=== PATIENT | male | born 1955 | race African-American/Black ===

== ENCOUNTER 2020-07-01 22:10 | Inpatient (IN) | payer OTHER ==
[2020-07-01 22:43] VITALS: BMI 24.5
--- NOTE | 2020-07-02 02:02 | HP ---
COWS - Scale Resting Pulse: 0= [place] 80 or Below Sweatin=Flushed/Facial Moisture Restless Observation: 0= Sits Still Pupil Size: 0= Normal to Room Light Bone or Joint Aches: 2= Severe Diffuse Aches Runny Nose/ Eye Tearin= Nasal Congestion GI Upset > 30mins: 1= Stomach Cramp Tremor Observation: 2= Slight Tremor Visible Yawning Observation: 1= 1-2x During Session Anxiety or Irritability: 4=Extreme Anxiety Goose Flesh Skin: 0=Smooth Skin COWS Score: 13 CIWA Score - Admission Criteria OASAS Guidelines: Admission for Medically Managed Detox: Requires at least one of the followin. CIWA greater than 12 2. Seizures within the past 24 hours 3. Delirium tremens within the past 24 hours 4. Hallucinations within the past 24 hours 5. Acute intervention needed for co occurring medical disorder 6. Acute intervention needed for co occurring psychiatric disorder 7. Severe withdrawal that cannot be handled at a lower level of care (continued vomiting, continued diarrhea, abnormal vital signs) requiring intravenous medication and/or fluids 8. Admission ROS [facility] Chief Complaint: Seeking admission to detox from heroin Allergies/Adverse Reactions: Allergies Allergy/AdvReac Type Severity Reaction Status Date / Time Penicillins Allergy Verified 07/02/20 02:01 penicillin Allergy Unknown Uncoded 07/02/20 02:00 History of Present Illness: 64 years old male with a long history of heroin dependence is seeking admission to detox. This is his first admission to [facility] and he reports that his last admission was at [facility] He uses 4 bags of heroin daily. He has medical history of asthma, Hep. C, GERD, hypertension, syphilis (treated 30 years ago) and psych. history of depression, bipolar disorder, schizophrenia and anxiety. He reports suicide attempt 20 years ago and denies suicidal ideation at this time. He is on disability, lives alone and denies pending legal issues. He reports history of blackouts and overdose (last overdose was Nov 2019) Exam Limitations: No Limitations - Ebola screening Have you traveled outside of the country in the last 21 days: No Have you had contact with anyone from an Ebola affected area: No Have you been sick,other than usual withdrawal symptoms: No Do you have a fever: No - Review of Systems Constitutional: Chills, Loss of Appetite, Malaise, Changes in sleep EENT: reports: No Symptoms Reported Respiratory: reports: No Symptoms reported Cardiac: reports: No Symptoms Reported GI: reports: Nausea, Poor Appetite, Poor Fluid Intake, Abdominal cramping : reports: No Symptoms Reported Musculoskeletal: reports: Back Pain, Joint Pain Integumentary: reports: Dryness, Flushing Neuro: reports: Headache, Tremors Endocrine: reports: No Symptoms Reported Hematology: reports: No Symptoms Reported Psychiatric: reports: Mood/Affect Appropiate, Orientated x3, Anxious, Depressed Other Systems: Reviewed and Negative Patient History - Patient Medical History Hx Anemia: No Hx Asthma: Yes (Albuterol) Hx Chronic Obstructive Pulmonary Disease (COPD): No Hx Cancer: No Hx Cardiac Disorders: No Hx Congestive Heart Failure: No Hx Hypertension: Yes (HCTZ) Hx Hypercholesterolemia: No HX Cerebrovascular Accident: No Hx Seizures: No Hx Diabetes: No Hx Gastrointestinal Disorders: Yes (GERD) Hx Liver Disease: Yes (Hep. C) Hx Genitourinary Disorders: No Hx Sexually Transmitted Disorders: Yes (Syphilis) Hx Renal Disease (ESRD): No Hx Thyroid Disease: No Hx Human Immunodeficiency Virus (HIV): No (Negative 2018) Hx Hepatitis C: Yes (Not treated) Hx Depression: Yes Hx Suicide Attempt: Yes (Attempt in 1999, denies suicidal ideation at this time) Hx Bipolar Disorder: Yes Hx Schizophrenia: Yes - Patient Surgical History Past Surgical History: No - PPD History Previous Implant?: Yes Documented Results: Negative w/o proof Implanted On Prior R Admission?: No PPD to be Administered?: Yes - Reproductive History Patient is a Female of Child Bearing Age (11 -55 yrs old): No (Male) - Smoking Cessation Smoking history: Current every day smoker Have you smoked in the past 12 months: Yes Aproximately how many cigarettes per day: 40 Hx Chewing Tobacco Use: No Initiated information on smoking cessation: Yes 'Breaking Loose' booklet given: 07/02/20 - Substance & Tx. History Hx Alcohol Use: No Hx Substance Use: Yes Substance Use Type: Cocaine, Heroin, Opiates Hx Substance Use Treatment: Yes ([facility] - Substances abused Heroin Substance route: Injection Frequency: Daily Amount used: 4 bags Age of first use: 16 Date of last use: 07/02/20 Admission Physical Exam BHS - Vital Signs Vital Signs: Vital Signs - 24 hr 07/01/20 22:41 Temperature 97.6 F Pulse Rate 68 Respiratory 19 Rate Blood Pressure 120/77 - Physical General Appearance: Yes: Moderate Distress, Tremorous, Sweating, Anxious HEENTM: Yes: Within Normal Limits Respiratory: Yes: Lungs Clear, Normal Breath Sounds, No Respiratory Distress Neck: Yes: Within Normal Limits Breast: Yes: Breast Exam Deferred Cardiology: Yes: Within Normal Limits Abdominal: Yes: Within Normal Limits Genitourinary: Yes: Within Normal Limits Back: Yes: Within Normal Limits Musculoskeletal: Yes: Back pain, Muscle Pain Extremities: Yes: Tremors Neurological: Yes: Within Normal Limits Integumentary: Yes: Warm Lymphatic: Yes: Within Normal Limits - Diagnostic (1) Opioid dependence, uncomplicated Current Visit: Yes Status: Acute (2) Asthma Current Visit: Yes Status: Chronic Qualifiers: Asthma severity: mild Asthma persistence: intermittent (3) Hep C w/o coma, chronic Current Visit: Yes Status: Chronic (4) GERD (gastroesophageal reflux disease) Current Visit: Yes Status: Chronic (5) Hypertension Current Visit: Yes Status: Chronic Qualifiers: Hypertension type: essential hypertension Qualified Code(s): I10 - Essential (primary) hypertension (6) Syphilis Current Visit: Yes Status: Chronic (7) Depression Current Visit: Yes Status: Chronic Qualifiers: Depression Type: unspecified Qualified Code(s): F32.9 - Major depressive disorder, single episode, unspecified (8) Bipolar disorder Current Visit: Yes Status: Chronic (9) Schizophrenia Current Visit: Yes Status: Chronic (10) Anxiety Current Visit: Yes Status: Chronic Cleared for Admission [facility] - Detox or Rehab [facility] Level of Care: Medically Managed Detox Regimen/Protocol: Methadone Claeared for Rehab Admission: Yes Breathalyzer - Breathalyzer Breathalyzer: 0 Urine Drug Screen - Test Device Lot number: [id number] Expiration date: 05/25/22 - Control Is test valid?: Yes - Results Drug screen NEGATIVE: No Urine drug screen results: CALE-Cocaine, MOP-Opiates, MTD-Methadone, BZO- Benzodiazepines Inpatient Rehab Admission - Rehab Decision to Admit Inpatient rehab admission?: No
[2020-07-02] MEDS ORDERED: NICOTINE POLACRILEX 2 MG GUM BUC PRN (02:23)
[2020-07-02] MEDS ORDERED: MENTHOL/PHENOL 1 EACH UD MM PRN (02:23)
[2020-07-02] MEDS ORDERED: cloNIDine HCL 0.1 MG TABLET PO PRN (02:23)
[2020-07-02] MEDS ORDERED: ACETAMINOPHEN 325 MG TABLET (FP) PO PRN (02:23)
[2020-07-02] MEDS ORDERED: MAG HYDROX/AL HYDROX/SIMETH 30 ML UNIT-DOSE CUP PO PRN (02:23)
[2020-07-02] MEDS ORDERED: ONDANSETRON *ODT* 4 MG TABLET SL PRN (02:23)
[2020-07-02] MEDS ORDERED: IBUPROFEN 400 MG TABLET (FP) PO PRN (02:23)
[2020-07-02] MEDS ORDERED: MAGNESIUM CITRATE 300 ML BOTTLE PO PRN (02:23)
[2020-07-02] MEDS ORDERED: MAGNESIUM HYDROX 2400MG/30ML ORAL SUSPENSION 30 ML CUP PO PRN (02:23)
[2020-07-02] MEDS ORDERED: METHADONE HCL 10 MG TABLET (FOR DETOX USE ONLY) PO ONE (02:40)
[2020-07-02] MEDS: ACETAMINOPHEN 325 MG TABLET (FP) PO PRN (05:24)
[2020-07-02] MEDS: METHOCARBAMOL 500 MG TABLET PO PRN ×2 (05:24→22:17)
--- NOTE | 2020-07-02 09:01 | EKG ---
Test Reason : Blood Pressure : / mmHG Vent. Rate : 066 BPM Atrial Rate : 066 BPM P-R Int : 148 ms QRS Dur : 078 ms QT Int : 414 ms P-R-T Axes : 070 -20 035 degrees QTc Int : 434 ms NORMAL SINUS RHYTHM MINIMAL VOLTAGE CRITERIA FOR LVH, MAY BE NORMAL VARIANT LEFTWARD AXIS NO PREVIOUS ECGS AVAILABLE Confirmed by PETAR AVILA MD ([id number]) on 07/02/2020 9:00:24 AM Referred By: Tarun Reed Confirmed By:PETAR AVILA MD
[2020-07-02 10:39] LABS: HEMATOCRIT 39.5 % (35.4-49); MCH 30.3 pg (25.7-33.7); MCHC 32.8 g/dl (32.0-35.9); MEAN CELL VOLUME 92.2 fl (80-96); MEAN PLT VOLUME 7.4 fl (7.5-11.1); PLATELET COUNT 269 K/MM3 (134-434); RBC 4.28 M/mm3 (4.00-5.60); RDW 12.8 % (11.9-15.9)
[2020-07-02] MEDS: PRENATAL VITAMINS W/ FOLIC ACID TABLET (FP) PO SCH (10:47)
[2020-07-02] MEDS: NICOTINE 14 MG/24 HOURS TOPICAL PATCH TD SCH (10:47)
[2020-07-02 11:01] LABS: ALBUMIN 3.6 g/dl (3.4-5.0); CALCIUM 9.1 mg/dL (8.5-10.1); POTASSIUM 4.2 mmol/L (3.5-5.1)
[2020-07-02 11:04] LABS: BILIRUBIN,TOTAL 0.5 mg/dL (0.2-1); CREATININE 1.6 mg/dL (0.55-1.3)
--- NOTE | 2020-07-02 11:49 | PN ---
BHS COWS - Scale Resting Pulse: 0= [place] 80 or Below Sweatin= Chills/Flushing Restless Observation: 1= Difficult to Sit Still Pupil Size: 0= Normal to Room Light Bone or Joint Aches: 1= Mild Discomfort Runny Nose/ Eye Tearin= Runny Nose/Eyes GI Upset > 30mins: 1= Stomach Cramp Tremor Observation of Outstretched Hands: 1= Tremor [place], Not Seen Yawning Observation: 1= 1-2x During Session Anxiety or Irritability: 2=Irritable/Anxious Goose Flesh Skin: 0=Smooth Skin COWS Score: 10 BHS Progress Note (SOAP) Subjective: sweats shakes interrupted sleep agitation body aches Objective: 07/02/20 11:49 Vital Signs Temperature 97.3 F L 07/02/20 05:51 Pulse Rate 67 07/02/20 05:51 Respiratory Rate 20 07/02/20 05:51 Blood Pressure 95/56 L 07/02/20 05:51 O2 Sat by Pulse Oximetry (%) 99 07/02/20 05:51 Laboratory Tests 07/02/20 07/02/20 07/02/20 08:10 08:10 08:10 WBC 8.0 RBC 4.28 Hgb 13.0 Hct 39.5 MCV 92.2 MCH 30.3 MCHC 32.8 RDW 12.8 Plt Count 269 MPV 7.4 L Sodium 138 Potassium 4.2 Chloride 103 Carbon Dioxide 29 Anion Gap 7 L BUN 33.0 H Creatinine 1.6 H Est GFR (CKD-EPI)AfAm 52.36 Est GFR (CKD-EPI)NonAf 45.18 Random Glucose 97 Calcium 9.1 Total Bilirubin 0.5 AST 43 H ALT 51 Alkaline Phosphatase 38 L Total Protein 8.0 Albumin 3.6 Syphilis Serology Reactive A* labs noted aaox3 ambulating no acute distress Assessment: 07/02/20 11:49 withdrawals Plan: continue detox
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
[2020-07-02] MEDS: THIAMINE HCL 100 MG TABLET (FP) PO SCH (22:17)
[2020-07-02] MEDS: MELATONIN 5 MG TABLETS PO SCH (22:17)
[2020-07-02] MEDS: traZODone HCL 100 MG TABLET (FP) PO SCH (22:17)
[2020-07-03] MEDS ORDERED: METHADONE (DETOX) 20 MG, METHADONE (DETOX) 5 MG PO ONE (10:00)
[2020-07-03] MEDS ORDERED: METHADONE HCL 10 MG TABLET (FOR DETOX USE ONLY) ONE (10:05)
[2020-07-03] MEDS ORDERED: METHADONE HCL 5 MG TABLET (FOR DETOX USE ONLY) ONE (10:05)
[2020-07-03] MEDS: NICOTINE 14 MG/24 HOURS TOPICAL PATCH TD SCH (10:18)
[2020-07-03] MEDS: QUEtiapine FUMARATE 100 MG TABLET (FP) PO SCH (10:18)
[2020-07-03] MEDS: PRENATAL VITAMINS W/ FOLIC ACID TABLET (FP) PO SCH (10:18)
[2020-07-03] MEDS: METHOCARBAMOL 500 MG TABLET PO PRN ×2 (11:52→22:07)
[2020-07-03] MEDS ORDERED: MASKS NR ONE (12:00)
--- NOTE | 2020-07-03 19:25 | PN ---
BHS COWS - Scale Resting Pulse: 1= [place] 81-100 Sweatin= Chills/Flushing Restless Observation: 1= Difficult to Sit Still Pupil Size: 0= Normal to Room Light Bone or Joint Aches: 2= Severe Diffuse Aches Runny Nose/ Eye Tearin= None GI Upset > 30mins: 0= None Tremor Observation of Outstretched Hands: 0= None Yawning Observation: 0= None Anxiety or Irritability: 2=Irritable/Anxious Goose Flesh Skin: 0=Smooth Skin COWS Score: 7 BHS Progress Note (SOAP) Subjective: Anxious, Fatigue, Body Aches, Interrupted Sleep. Objective: Patient A & O X 3, Observed Ambulating on Detox Unit Unassisted. In No Acute Distress. 07/03/20 19:26 Vital Signs Temperature 97.5 F L 07/03/20 16:54 Pulse Rate 94 H 07/03/20 16:54 Respiratory Rate 20 07/03/20 16:54 Blood Pressure 154/74 07/03/20 16:54 O2 Sat by Pulse Oximetry (%) 98 07/03/20 05:51 Laboratory Tests 07/02/20 07/02/20 07/02/20 08:10 08:10 08:10 WBC 8.0 RBC 4.28 Hgb 13.0 Hct 39.5 MCV 92.2 MCH 30.3 MCHC 32.8 RDW 12.8 Plt Count 269 MPV 7.4 L Sodium 138 Potassium 4.2 Chloride 103 Carbon Dioxide 29 Anion Gap 7 L BUN 33.0 H Creatinine 1.6 H Est GFR (CKD-EPI)AfAm 52.36 Est GFR (CKD-EPI)NonAf 45.18 Random Glucose 97 Calcium 9.1 Total Bilirubin 0.5 AST 43 H ALT 51 Alkaline Phosphatase 38 L Total Protein 8.0 Albumin 3.6 Syphilis Serology Reactive A* RPR Titer COVID-19 ([facility]) 07/02/20 07/02/20 08:10 12:55 WBC RBC Hgb Hct MCV MCH MCHC RDW Plt Count MPV Sodium Potassium Chloride Carbon Dioxide Anion Gap BUN Creatinine Est GFR (CKD-EPI)AfAm Est GFR (CKD-EPI)NonAf Random Glucose Calcium Total Bilirubin AST ALT Alkaline Phosphatase Total Protein Albumin Syphilis Serology RPR Titer Reactive 1:1 H COVID-19 ([facility]ADELINE) Not detected Lab Results noted. Detox Admission RPR Result noted: Reactive A; Reactive 1:1. Patient reports that he completed treatment for Syphilis in the past. 07/03/20 19:27 Assessment: 07/03/20 19:28 WITHDRAWAL SYMPTOMS. AZOTEMIA. REACTIVE RPR. ELEVATED AST LEVEL. 07/03/20 19:28 Plan: Continue Detox. Increase Daily Oral Water Intake. D/C Ibuprofen and Magnesium-Containing Meds. for Abnormal Admission Renal Lab Values. BMP ordered for tomorrow AM to see if any change in Abnormal Renal Lab values from Detox Admission Laboratory Assessment.
[2020-07-03] MEDS: THIAMINE HCL 100 MG TABLET (FP) PO SCH (22:07)
[2020-07-03] MEDS: MELATONIN 5 MG TABLETS PO SCH (22:07)
[2020-07-03] MEDS: traZODone HCL 100 MG TABLET (FP) PO SCH (22:07)
[2020-07-04] MEDS ORDERED: MAG HYDROX/AL HYDROX/SIMETH 30 ML UNIT-DOSE CUP PO ONE ×2 (01:06→12:20)
--- NOTE | 2020-07-04 01:13 | PN ---
[facility] Progress Note Note: Patient complained of indigestion Vital Signs Temperature 98.6 F 07/03/20 20:31 Pulse Rate 93 H 07/03/20 20:31 Respiratory Rate 18 07/03/20 20:31 Blood Pressure 139/96 07/03/20 20:31 O2 Sat by Pulse Oximetry (%) 98 07/03/20 20:31 Laboratory Last Values WBC 8.0 K/mm3 (4.0-10.0) 07/02/20 08:10 RBC 4.28 M/mm3 (4.00-5.60) 07/02/20 08:10 Hgb 13.0 GM/dL (11.7-16.9) 07/02/20 08:10 Hct 39.5 % (35.4-49) 07/02/20 08:10 MCV 92.2 fl (80-96) 07/02/20 08:10 MCH 30.3 pg (25.7-33.7) 07/02/20 08:10 MCHC 32.8 g/dl (32.0-35.9) 07/02/20 08:10 RDW 12.8 % (11.9-15.9) 07/02/20 08:10 Plt Count 269 K/MM3 (134-434) 07/02/20 08:10 MPV 7.4 fl (7.5-11.1) L 07/02/20 08:10 Sodium 138 mmol/L (136-145) 07/02/20 08:10 Potassium 4.2 mmol/L (3.5-5.1) 07/02/20 08:10 Chloride 103 mmol/L (98-107) 07/02/20 08:10 Carbon Dioxide 29 mmol/L (21-32) 07/02/20 08:10 Anion Gap 7 MMOL/L (8-16) L 07/02/20 08:10 BUN 33.0 mg/dL (7-18) H 07/02/20 08:10 Creatinine 1.6 mg/dL (0.55-1.3) H 07/02/20 08:10 Est GFR (CKD-EPI)AfAm 52.36 07/02/20 08:10 Est GFR (CKD-EPI)NonAf 45.18 07/02/20 08:10 Random Glucose 97 mg/dL (74-106) 07/02/20 08:10 Calcium 9.1 mg/dL (8.5-10.1) 07/02/20 08:10 Total Bilirubin 0.5 mg/dL (0.2-1) 07/02/20 08:10 AST 43 U/L (15-37) H 07/02/20 08:10 ALT 51 U/L (13-61) 07/02/20 08:10 Alkaline Phosphatase 38 U/L (45-117) L 07/02/20 08:10 Total Protein 8.0 g/dl (6.4-8.2) 07/02/20 08:10 Albumin 3.6 g/dl (3.4-5.0) 07/02/20 08:10 Syphilis Serology Reactive (NONREACTIVE) A* 07/02/20 08:10 RPR Titer Reactive 1:1 (NONREACTIVE) H 07/02/20 08:10 COVID-19 ([facility]AD[facility]INE) Not detected (Not Detected) 07/02/20 12:55 Action:Mag. hydrox/al hydrox/simeth (Mylanta oral suspension) 30ml oral ordered
[2020-07-04 09:31] LABS: BLOOD UREA NITROGEN 22.7 mg/dL (7-18); CALCIUM 9.3 mg/dL (8.5-10.1); CREATININE 1.3 mg/dL (0.55-1.3); POTASSIUM 4.3 mmol/L (3.5-5.1)
[2020-07-04] MEDS ORDERED: METHADONE HCL 10 MG TABLET (FOR DETOX USE ONLY) PO ONE (10:00)
[2020-07-04] MEDS: QUEtiapine FUMARATE 100 MG TABLET (FP) PO SCH (10:26)
[2020-07-04] MEDS: PRENATAL VITAMINS W/ FOLIC ACID TABLET (FP) PO SCH (10:27)
[2020-07-04] MEDS: NICOTINE 14 MG/24 HOURS TOPICAL PATCH TD SCH (10:28)
[2020-07-04] MEDS ORDERED: ALBUTEROL SO4 HFA INHALER IH PRN (16:53)
[2020-07-04] MEDS: METHOCARBAMOL 500 MG TABLET PO PRN (17:36)
[2020-07-04] MEDS: HYDROCHLOROTHIAZIDE 12.5 MG CAPSULE (FP) PO SCH (18:52)
--- NOTE | 2020-07-04 19:56 | PN ---
BHS COWS - Scale Resting Pulse: 1= [place] 81-100 Sweatin= Chills/Flushing Restless Observation: 0= Sits Still Pupil Size: 0= Normal to Room Light Bone or Joint Aches: 1= Mild Discomfort Runny Nose/ Eye Tearin= Nasal Congestion GI Upset > 30mins: 1= Stomach Cramp Tremor Observation of Outstretched Hands: 2= Slight Tremor Visible Yawning Observation: 0= None Anxiety or Irritability: 1=Feels Anxious/Irritable Goose Flesh Skin: 0=Smooth Skin COWS Score: 8 BHS Progress Note (SOAP) Subjective: Chills, stomach cramps, constipation (had a little bm this morning), interrupted sleep. Patient requesting home medication from his property, assigned RN informed. Objective: 07/04/20 19:52 Last Vital Signs Temp Pulse Resp BP Pulse Ox 97.7 F 88 18 135/86 93 L 07/04/20 09:18 07/04/20 18:56 07/04/20 18:56 07/04/20 18:56 07/04/20 06:26 Elevated b/p Laboratory Tests 07/02/20 07/02/20 07/02/20 08:10 08:10 08:10 WBC 8.0 RBC 4.28 Hgb 13.0 Hct 39.5 MCV 92.2 MCH 30.3 MCHC 32.8 RDW 12.8 Plt Count 269 MPV 7.4 L Sodium 138 Potassium 4.2 Chloride 103 Carbon Dioxide 29 Anion Gap 7 L BUN 33.0 H Creatinine 1.6 H Est GFR (CKD-EPI)AfAm 52.36 Est GFR (CKD-EPI)NonAf 45.18 Random Glucose 97 Calcium 9.1 Total Bilirubin 0.5 AST 43 H ALT 51 Alkaline Phosphatase 38 L Total Protein 8.0 Albumin 3.6 Syphilis Serology Reactive A* RPR Titer COVID-19 ([facility]AD[facility]INE) 07/02/20 07/02/20 07/04/20 08:10 12:55 07:30 WBC RBC Hgb Hct MCV MCH MCHC RDW Plt Count MPV Sodium 137 Potassium 4.3 Chloride 104 Carbon Dioxide 30 Anion Gap 3 L BUN 22.7 H Creatinine 1.3 Est GFR (CKD-EPI)AfAm 67.30 Est GFR (CKD-EPI)NonAf 58.07 Random Glucose 96 Calcium 9.3 Total Bilirubin AST ALT Alkaline Phosphatase Total Protein Albumin Syphilis Serology RPR Titer Reactive 1:1 H COVID-19 (MADELINE) Not detected Labs reviewed: DWAIN, azotemia noted; h/o syphilis (treated) Assessment: 07/04/20 19:54 Withdrawal sxs Noted with HTN, DWAIN, Azotemia Plan: Continue detox HTN: monitor b/p, continue antihypertensive medication DWAIN: encourage PO water hydration, repeat BMP Azotemia: encourage to drink more water, repeat bun level
[2020-07-04] MEDS: THIAMINE HCL 100 MG TABLET (FP) PO SCH (22:13)
[2020-07-04] MEDS: traZODone HCL 100 MG TABLET (FP) PO SCH (22:13)
[2020-07-04] MEDS: MELATONIN 5 MG TABLETS PO SCH (22:13)
[2020-07-05] MEDS ORDERED: METHADONE HCL 10 MG TABLET (FOR DETOX USE ONLY) ONE (08:39)
[2020-07-05] MEDS ORDERED: METHADONE HCL 5 MG TABLET (FOR DETOX USE ONLY) ONE (08:39)
[2020-07-05] MEDS ORDERED: METHADONE (DETOX) 10 MG, METHADONE (DETOX) 5 MG PO ONE (10:00)
[2020-07-05] MEDS: PRENATAL VITAMINS W/ FOLIC ACID TABLET (FP) PO SCH (10:25)
[2020-07-05] MEDS: HYDROCHLOROTHIAZIDE 12.5 MG CAPSULE (FP) PO SCH (10:25)
[2020-07-05] MEDS: NICOTINE 14 MG/24 HOURS TOPICAL PATCH TD SCH (10:25)
[2020-07-05] MEDS: QUEtiapine FUMARATE 100 MG TABLET (FP) PO SCH (10:25)
[2020-07-05 11:15] LABS: BLOOD UREA NITROGEN 23.6 mg/dL (7-18); CALCIUM 9.2 mg/dL (8.5-10.1); POTASSIUM 4.6 mmol/L (3.5-5.1)
[2020-07-05 11:16] LABS: CREATININE 1.3 mg/dL (0.55-1.3)
--- NOTE | 2020-07-05 12:11 | PN ---
BHS COWS - Scale Resting Pulse: 1= [place] 81-100 Sweatin= No chills or Flushing Restless Observation: 1= Difficult to Sit Still Pupil Size: 0= Normal to Room Light Bone or Joint Aches: 1= Mild Discomfort Runny Nose/ Eye Tearin= None GI Upset > 30mins: 0= None Tremor Observation of Outstretched Hands: 0= None Yawning Observation: 1= 1-2x During Session Anxiety or Irritability: 1=Feels Anxious/Irritable Goose Flesh Skin: 0=Smooth Skin COWS Score: 5 BHS Progress Note (SOAP) Subjective: sweats restless Objective: 07/05/20 12:09 Vital Signs Temperature 98.0 F 07/05/20 09:19 Pulse Rate 85 07/05/20 09:19 Respiratory Rate 16 07/05/20 09:19 Blood Pressure 112/74 07/05/20 09:19 O2 Sat by Pulse Oximetry (%) 96 07/05/20 09:19 Laboratory Tests 07/02/20 07/02/20 07/02/20 08:10 08:10 08:10 WBC 8.0 RBC 4.28 Hgb 13.0 Hct 39.5 MCV 92.2 MCH 30.3 MCHC 32.8 RDW 12.8 Plt Count 269 MPV 7.4 L Sodium 138 Potassium 4.2 Chloride 103 Carbon Dioxide 29 Anion Gap 7 L BUN 33.0 H Creatinine 1.6 H Est GFR (CKD-EPI)AfAm 52.36 Est GFR (CKD-EPI)NonAf 45.18 Random Glucose 97 Calcium 9.1 Total Bilirubin 0.5 AST 43 H ALT 51 Alkaline Phosphatase 38 L Total Protein 8.0 Albumin 3.6 Syphilis Serology Reactive A* RPR Titer COVID-19 (MADELINE) 07/02/20 07/02/20 07/04/20 08:10 12:55 07:30 WBC RBC Hgb Hct MCV MCH MCHC RDW Plt Count MPV Sodium 137 Potassium 4.3 Chloride 104 Carbon Dioxide 30 Anion Gap 3 L BUN 22.7 H Creatinine 1.3 Est GFR (CKD-EPI)AfAm 67.30 Est GFR (CKD-EPI)NonAf 58.07 Random Glucose 96 Calcium 9.3 Total Bilirubin AST ALT Alkaline Phosphatase Total Protein Albumin Syphilis Serology RPR Titer Reactive 1:1 H COVID-19 (MADELINE) Not detected 07/05/20 07:40 WBC RBC Hgb Hct MCV MCH MCHC RDW Plt Count MPV Sodium 136 Potassium 4.6 Chloride 104 Carbon Dioxide 26 Anion Gap 6 L BUN 23.6 H Creatinine 1.3 Est GFR (CKD-EPI)AfAm 67.30 Est GFR (CKD-EPI)NonAf 58.07 Random Glucose 104 Calcium 9.2 Total Bilirubin AST ALT Alkaline Phosphatase Total Protein Albumin Syphilis Serology RPR Titer COVID-19 (MADELINE) aaox3 lying in bed no acute distress Assessment: 07/05/20 12:11 withdrawal sx Plan: continue detox increase fluids
[2020-07-05] MEDS: METHOCARBAMOL 500 MG TABLET PO PRN (18:06)
[2020-07-05] MEDS: BISMUTH SUBSALICYLATE 524 MG/30 ML UD PO PRN (18:06)
[2020-07-05] MEDS: traZODone HCL 100 MG TABLET (FP) PO SCH (22:27)
[2020-07-05] MEDS: MELATONIN 5 MG TABLETS PO SCH (22:27)
[2020-07-05] MEDS: THIAMINE HCL 100 MG TABLET (FP) PO SCH (22:27)
[2020-07-06] MEDS: BISMUTH SUBSALICYLATE 524 MG/30 ML UD PO PRN (02:46)
[2020-07-06] MEDS: METHOCARBAMOL 500 MG TABLET PO PRN ×2 (06:01→18:18)
[2020-07-06] MEDS ORDERED: METHADONE HCL 10 MG TABLET (FOR DETOX USE ONLY) PO ONE (10:00)
[2020-07-06] MEDS: PRENATAL VITAMINS W/ FOLIC ACID TABLET (FP) PO SCH (10:31)
[2020-07-06] MEDS: HYDROCHLOROTHIAZIDE 12.5 MG CAPSULE (FP) PO SCH (10:31)
[2020-07-06] MEDS: NICOTINE 14 MG/24 HOURS TOPICAL PATCH TD SCH (10:31)
[2020-07-06] MEDS: QUEtiapine FUMARATE 100 MG TABLET (FP) PO SCH (10:31)
--- NOTE | 2020-07-06 11:08 | PN ---
BHS COWS - Scale Resting Pulse: 0= [place] 80 or Below Sweatin= Chills/Flushing Restless Observation: 0= Sits Still Pupil Size: 0= Normal to Room Light Bone or Joint Aches: 0= None Runny Nose/ Eye Tearin= None GI Upset > 30mins: 0= None Tremor Observation of Outstretched Hands: 0= None Yawning Observation: 0= None Anxiety or Irritability: 1=Feels Anxious/Irritable Goose Flesh Skin: 0=Smooth Skin COWS Score: 2 BHS Progress Note (SOAP) Subjective: agitation sweats Objective: 07/06/20 11:04 Vital Signs Temperature 97.1 F L 07/06/20 08:56 Pulse Rate 79 07/06/20 08:56 Respiratory Rate 18 07/06/20 08:56 Blood Pressure 111/76 07/06/20 08:56 O2 Sat by Pulse Oximetry (%) 99 07/06/20 08:56 aaox3 ambulating no acute distress Assessment: 07/06/20 11:04 withdrawals Plan: continue detox increase fluids d/c in am
[2020-07-06] MEDS: ACETAMINOPHEN 325 MG TABLET (FP) PO PRN (12:44)
[2020-07-06] MEDS: traZODone HCL 100 MG TABLET (FP) PO SCH (22:25)
[2020-07-06] MEDS: MELATONIN 5 MG TABLETS PO SCH (22:25)
[2020-07-06] MEDS: THIAMINE HCL 100 MG TABLET (FP) PO SCH (22:25)
[2020-07-07] MEDS ORDERED: METHADONE HCL 5 MG TABLET (FOR DETOX USE ONLY) PO ONE (06:00)
--- NOTE | 2020-07-07 09:28 | DS ---
[facility] Summary Admission Date: 07/02/20 - History Present History: Opioid Dependence - Physical Exam Results Vital Signs: Vital Signs Temperature 95.1 F L 07/07/20 08:02 Pulse Rate 75 07/07/20 08:02 Respiratory Rate 18 07/07/20 08:02 Blood Pressure 118/70 07/07/20 08:02 O2 Sat by Pulse Oximetry (%) 93 L 07/07/20 08:02 Pertinent Admission Physical Exam Findings: Vital Signs Temperature 95.1 F L 07/07/20 08:02 Pulse Rate 75 07/07/20 08:02 Respiratory Rate 18 07/07/20 08:02 Blood Pressure 118/70 07/07/20 08:02 O2 Sat by Pulse Oximetry (%) 93 L 07/07/20 08:02 Laboratory Tests 07/02/20 07/02/20 07/02/20 08:10 08:10 08:10 WBC 8.0 RBC 4.28 Hgb 13.0 Hct 39.5 MCV 92.2 MCH 30.3 MCHC 32.8 RDW 12.8 Plt Count 269 MPV 7.4 L Sodium 138 Potassium 4.2 Chloride 103 Carbon Dioxide 29 Anion Gap 7 L BUN 33.0 H Creatinine 1.6 H Est GFR (CKD-EPI)AfAm 52.36 Est GFR (CKD-EPI)NonAf 45.18 Random Glucose 97 Calcium 9.1 Total Bilirubin 0.5 AST 43 H ALT 51 Alkaline Phosphatase 38 L Total Protein 8.0 Albumin 3.6 Syphilis Serology Reactive A* RPR Titer COVID-19 (MADELINE) 07/02/20 07/02/20 07/04/20 08:10 12:55 07:30 WBC RBC Hgb Hct MCV MCH MCHC RDW Plt Count MPV Sodium 137 Potassium 4.3 Chloride 104 Carbon Dioxide 30 Anion Gap 3 L BUN 22.7 H Creatinine 1.3 Est GFR (CKD-EPI)AfAm 67.30 Est GFR (CKD-EPI)NonAf 58.07 Random Glucose 96 Calcium 9.3 Total Bilirubin AST ALT Alkaline Phosphatase Total Protein Albumin Syphilis Serology RPR Titer Reactive 1:1 H COVID-19 (MADELINE) Not detected 07/05/20 07:40 WBC RBC Hgb Hct MCV MCH MCHC RDW Plt Count MPV Sodium 136 Potassium 4.6 Chloride 104 Carbon Dioxide 26 Anion Gap 6 L BUN 23.6 H Creatinine 1.3 Est GFR (CKD-EPI)AfAm 67.30 Est GFR (CKD-EPI)NonAf 58.07 Random Glucose 104 Calcium 9.2 Total Bilirubin AST ALT Alkaline Phosphatase Total Protein Albumin Syphilis Serology RPR Titer COVID-19 (MADELINE) aaox3 ambulating no acute distress lungs CTA - Treatment Hospital Course: Detox Protocol Followed, Detoxed Safely, Responded well, Discharged Condition Good, Rehab Referral Accepted - Medication Discharge Medications: Ambulatory Orders Hydrochlorothiazide 12.5 mg PO 07/02/20 Quetiapine Fumarate [Seroquel -] 100 mg PO DAILY 07/02/20 traZODone HCL [Trazodone HCl] 200 mg PO 07/02/20 - Diagnosis (1) Azotemia Current Visit: Yes Status: Acute (2) Elevated aspartate aminotransferase level Current Visit: Yes Status: Chronic (3) Insomnia Current Visit: Yes Status: Acute (4) Opioid dependence, uncomplicated Current Visit: Yes Status: Chronic (5) Positive RPR test Current Visit: Yes Status: Acute (6) Anxiety Current Visit: Yes Status: Chronic (7) Asthma Current Visit: Yes Status: Chronic Qualifiers: Asthma severity: mild Asthma persistence: intermittent (8) Bipolar disorder Current Visit: Yes Status: Chronic (9) Depression Current Visit: Yes Status: Chronic Qualifiers: Depression Type: unspecified Qualified Code(s): F32.9 - Major depressive disorder, single episode, unspecified (10) GERD (gastroesophageal reflux disease) Current Visit: Yes Status: Chronic (11) Hep C w/o coma, chronic Current Visit: Yes Status: Chronic (12) Hypertension Current Visit: Yes Status: Chronic Qualifiers: Hypertension type: essential hypertension Qualified Code(s): I10 - Essential (primary) hypertension (13) Schizophrenia Current Visit: Yes Status: Chronic (14) Syphilis Current Visit: Yes Status: Chronic - AMA Did Patient Leave Against Medical Advice: No
[2020-07-07] MEDS: HYDROCHLOROTHIAZIDE 12.5 MG CAPSULE (FP) PO SCH (09:44)
[2020-07-07] MEDS: QUEtiapine FUMARATE 100 MG TABLET (FP) PO SCH (09:45)
[2020-07-07] MEDS: PRENATAL VITAMINS W/ FOLIC ACID TABLET (FP) PO SCH (09:45)
[2020-07-07 14:08] VITALS: BP 100/64; PULSE 79; TEMP 97.1
[2020-07-07] MEDS: NICOTINE 14 MG/24 HOURS TOPICAL PATCH TD SCH (14:13)
[2020-07-07] MEDS ORDERED: NICOTINE POLACRILEX 2 MG GUM BUC PRN (16:42)
[2020-07-07] MEDS ORDERED: MAG HYDROX/AL HYDROX/SIMETH 30 ML UNIT-DOSE CUP PO PRN (16:42)
[2020-07-07] MEDS ORDERED: MENTHOL/PHENOL 1 EACH UD MM PRN (16:42)
[2020-07-07] MEDS ORDERED: guaiFENesin 200 MG/10 ML 10 ML UNIT-DOSE CUPS PO PRN (16:42)
[2020-07-07] MEDS ORDERED: MAGNESIUM HYDROX 2400MG/30ML ORAL SUSPENSION 30 ML CUP PO PRN (16:42)
[2020-07-07] MEDS ORDERED: LOPERAMIDE HCL 2 MG CAPSULE PO PRN (16:42)
[2020-07-07] MEDS ORDERED: IBUPROFEN 400 MG TABLET (FP) PO PRN (16:42)
[2020-07-07] MEDS ORDERED: MAGNESIUM CITRATE 300 ML BOTTLE PO PRN (16:42)
[2020-07-07] MEDS ORDERED: P-EPHED 60MG/TRIPROLIDI 2.5MG TABLET PO PRN (16:42)
[2020-07-07] MEDS ORDERED: ACETAMINOPHEN 325 MG TABLET (FP) PO PRN (16:42)
[2020-07-07] MEDS ORDERED: MELATONIN 5 MG TABLETS PO SCH (22:00)
[2020-07-07] MEDS ORDERED: THIAMINE HCL 100 MG TABLET (FP) PO SCH (22:00)
[2020-07-08] MEDS ORDERED: HYDROCHLOROTHIAZIDE 12.5 MG CAPSULE (FP) PO SCH ×2 (10:00)
[2020-07-08] MEDS ORDERED: PRENATAL VITAMINS W/ FOLIC ACID TABLET (FP) PO SCH (10:00)
[2020-07-08] MEDS ORDERED: NICOTINE 21 MG/24 HOURS TOPICAL PATCH TD SCH (10:00)
== END 2020-07-07 14:51 | disposition other institution (70) | DRG 897 ==
LOC: YASAS 22:10 → Y6N 07-02 01:35
PROVIDERS: ADMIT Allergy & Immunology; ATTEND Allergy & Immunology
PROC: HZ2ZZZZ Detoxification Services for Substance Abuse Treatment (ICD-10-PCS; principal; 2020-07-02)
DX: F11.23 Opioid dependence with withdrawal (principal); N17.9 Acute kidney failure, unspecified; F17.210 Nicotine dependence, cigarettes, uncomplicated; F31.9 Bipolar disorder, unspecified; F20.9 Schizophrenia, unspecified; F41.9 Anxiety disorder, unspecified; I10 Essential (primary) hypertension; J45.20 Mild intermittent asthma, uncomplicated; K21.9 Gastro-esophageal reflux disease without esophagitis; A53.0 Latent syphilis, unspecified as early or late; B18.2 Chronic viral hepatitis C; G47.00 Insomnia, unspecified; R74.0 Nonspecific elevation of levels of transaminase and lactic acid dehydrogenase [LDH]; R79.89 Other specified abnormal findings of blood chemistry; Z62.810 Personal history of physical and sexual abuse in childhood; Z91.5 Personal history of self-harm; Z88.0 Allergy status to penicillin
CPT/HCPCS: 36415; 71046-TC-FY; 80048; 80053; 85027; 86593; 86780; 93005; 93010; Q0162; U0003

== ENCOUNTER 2020-07-07 15:21 | Inpatient (IN) | payer OTHER ==
[2020-07-07] MEDS ORDERED: MAGNESIUM HYDROX 2400MG/30ML ORAL SUSPENSION 30 ML CUP PO PRN (16:38)
[2020-07-07] MEDS ORDERED: P-EPHED 60MG/TRIPROLIDI 2.5MG TABLET PO PRN (16:38)
[2020-07-07] MEDS ORDERED: MAGNESIUM CITRATE 300 ML BOTTLE PO PRN (16:38)
[2020-07-07] MEDS ORDERED: guaiFENesin 200 MG/10 ML 10 ML UNIT-DOSE CUPS PO PRN (16:38)
[2020-07-07] MEDS ORDERED: LOPERAMIDE HCL 2 MG CAPSULE PO PRN (16:38)
[2020-07-07] MEDS ORDERED: MAG HYDROX/AL HYDROX/SIMETH 30 ML UNIT-DOSE CUP PO PRN (16:38)
[2020-07-07] MEDS ORDERED: NICOTINE POLACRILEX 2 MG GUM BUC PRN (16:38)
[2020-07-07] MEDS ORDERED: ACETAMINOPHEN 325 MG TABLET (FP) PO PRN (16:38)
[2020-07-07] MEDS ORDERED: MENTHOL/PHENOL 1 EACH UD MM PRN (16:38)
[2020-07-07] MEDS: THIAMINE HCL 100 MG TABLET (FP) PO SCH (21:48)
[2020-07-07] MEDS: MELATONIN 5 MG TABLETS PO SCH (21:48)
[2020-07-07] MEDS: traZODone HCL 100 MG TABLET (FP) PO SCH (21:48)
[2020-07-07] MEDS: QUEtiapine FUMARATE 100 MG TABLET (FP) PO SCH (21:48)
[2020-07-07] MEDS: hydrOXYzine PAMOATE 25 MG CAPSULE (FP) PO PRN (21:48)
[2020-07-07] MEDS: METHOCARBAMOL 500 MG TABLET PO PRN (23:04)
[2020-07-08] MEDS: NICOTINE 14 MG/24 HOURS TOPICAL PATCH TD SCH (09:39)
[2020-07-08] MEDS: PRENATAL VITAMINS W/ FOLIC ACID TABLET (FP) PO SCH (09:39)
[2020-07-08] MEDS: IBUPROFEN 400 MG TABLET (FP) PO PRN (09:40)
[2020-07-08] MEDS: METHOCARBAMOL 500 MG TABLET PO PRN ×2 (10:18→21:32)
--- NOTE | 2020-07-08 16:08 | HP ---
[facility] Rehab Assess/Revision - Admission History Admitted to Rehab from: [address] Date of Admission to Rehab: 07/07/20 - Vital signs Vital Signs: Vital Signs Period Temp Pulse Resp BP Sys/Epps Pulse Ox Last 24 Hr 98.2 F 69 18 114/69 94-95 - Findings Detox History & Physical reviewed: Yes Concur with findings: Yes Comments/Additional Findings: Pt admitted from [address] [place] [address] detox. Reports he has a primary care provider, Dr. Amish Miller [address] [place] [address]. PMHx:Asthma, HTN(no med), HEP C, BPH,Syphilis Hx. Psych Hx:Schizophrenia; Bipolar. Alert o x 3. nad. oob ambulating with steady gait. extremities:no edema, skin intact. Maintain safety. increase po fluids Inpatient Rehab Admission - Rehab Decision to Admit Inpatient rehab admission?: Yes - Initial Determination Are CD services needed?: Yes Free of communicable disease: Yes Not in need of hospitalization: Yes - Rehab Admission Criteria Previous failed treatment: Yes Poor recovery environment: Yes Comorbidities: Yes Lacks judgement: Yes Patient is meeting Inpatient Rehab admission criteria:: Yes
[2020-07-08] MEDS: traZODone HCL 100 MG TABLET (FP) PO SCH (21:33)
[2020-07-08] MEDS: QUEtiapine FUMARATE 100 MG TABLET (FP) PO SCH (21:33)
[2020-07-08] MEDS: THIAMINE HCL 100 MG TABLET (FP) PO SCH (21:33)
[2020-07-08] MEDS: MELATONIN 5 MG TABLETS PO SCH (21:33)
[2020-07-09] MEDS: PRENATAL VITAMINS W/ FOLIC ACID TABLET (FP) PO SCH (10:48)
[2020-07-09] MEDS: NICOTINE 14 MG/24 HOURS TOPICAL PATCH TD SCH (10:49)
[2020-07-09] MEDS: MELATONIN 5 MG TABLETS PO SCH (21:57)
[2020-07-09] MEDS: QUEtiapine FUMARATE 100 MG TABLET (FP) PO SCH (21:57)
[2020-07-09] MEDS: THIAMINE HCL 100 MG TABLET (FP) PO SCH (21:57)
[2020-07-09] MEDS: traZODone HCL 100 MG TABLET (FP) PO SCH (21:58)
[2020-07-10] MEDS: PRENATAL VITAMINS W/ FOLIC ACID TABLET (FP) PO SCH (10:15)
[2020-07-10] MEDS: NICOTINE 14 MG/24 HOURS TOPICAL PATCH TD SCH (10:15)
[2020-07-10] MEDS: METHOCARBAMOL 750 MG TABLET PO PRN (21:59)
[2020-07-10] MEDS: traZODone HCL 100 MG TABLET (FP) PO SCH (21:59)
[2020-07-10] MEDS: MELATONIN 5 MG TABLETS PO SCH (22:00)
[2020-07-10] MEDS: QUEtiapine FUMARATE 100 MG TABLET (FP) PO SCH (22:00)
[2020-07-10] MEDS: THIAMINE HCL 100 MG TABLET (FP) PO SCH (22:00)
[2020-07-11] MEDS: PRENATAL VITAMINS W/ FOLIC ACID TABLET (FP) PO SCH (10:29)
[2020-07-11] MEDS: METHOCARBAMOL 750 MG TABLET PO PRN ×2 (10:30→21:41)
[2020-07-11] MEDS: NICOTINE 14 MG/24 HOURS TOPICAL PATCH TD SCH (10:30)
[2020-07-11] MEDS: hydrOXYzine PAMOATE 25 MG CAPSULE (FP) PO PRN (21:40)
[2020-07-11] MEDS: THIAMINE HCL 100 MG TABLET (FP) PO SCH (21:40)
[2020-07-11] MEDS: QUEtiapine FUMARATE 100 MG TABLET (FP) PO SCH (21:40)
[2020-07-11] MEDS: traZODone HCL 100 MG TABLET (FP) PO SCH (21:40)
[2020-07-11] MEDS: MELATONIN 5 MG TABLETS PO SCH (21:40)
[2020-07-12] MEDS: PRENATAL VITAMINS W/ FOLIC ACID TABLET (FP) PO SCH (09:32)
[2020-07-12] MEDS: NICOTINE 14 MG/24 HOURS TOPICAL PATCH TD SCH (09:32)
[2020-07-12] MEDS: METHOCARBAMOL 750 MG TABLET PO PRN (21:05)
[2020-07-12] MEDS: MELATONIN 5 MG TABLETS PO SCH (21:06)
[2020-07-12] MEDS: THIAMINE HCL 100 MG TABLET (FP) PO SCH (21:06)
[2020-07-12] MEDS: QUEtiapine FUMARATE 100 MG TABLET (FP) PO SCH (21:06)
[2020-07-12] MEDS: hydrOXYzine PAMOATE 25 MG CAPSULE (FP) PO PRN (21:06)
[2020-07-12] MEDS: traZODone HCL 100 MG TABLET (FP) PO SCH (21:06)
[2020-07-13] MEDS: NICOTINE 14 MG/24 HOURS TOPICAL PATCH TD SCH (10:42)
[2020-07-13] MEDS: PRENATAL VITAMINS W/ FOLIC ACID TABLET (FP) PO SCH (10:42)
[2020-07-13] MEDS: THIAMINE HCL 100 MG TABLET (FP) PO SCH (21:33)
[2020-07-13] MEDS: QUEtiapine FUMARATE 100 MG TABLET (FP) PO SCH (21:33)
[2020-07-13] MEDS: traZODone HCL 100 MG TABLET (FP) PO SCH (21:33)
[2020-07-13] MEDS: hydrOXYzine PAMOATE 25 MG CAPSULE (FP) PO PRN (21:33)
[2020-07-13] MEDS: MELATONIN 5 MG TABLETS PO SCH (21:34)
[2020-07-14] MEDS: PRENATAL VITAMINS W/ FOLIC ACID TABLET (FP) PO SCH (09:33)
[2020-07-14] MEDS: NICOTINE 14 MG/24 HOURS TOPICAL PATCH TD SCH (09:33)
[2020-07-14] MEDS: QUEtiapine FUMARATE 100 MG TABLET (FP) PO SCH (21:39)
[2020-07-14] MEDS: METHOCARBAMOL 750 MG TABLET PO PRN (21:39)
[2020-07-14] MEDS: traZODone HCL 100 MG TABLET (FP) PO SCH (21:39)
[2020-07-14] MEDS: hydrOXYzine PAMOATE 25 MG CAPSULE (FP) PO PRN (21:39)
[2020-07-14] MEDS: THIAMINE HCL 100 MG TABLET (FP) PO SCH (21:39)
[2020-07-14] MEDS: MELATONIN 5 MG TABLETS PO SCH (21:40)
[2020-07-15] MEDS: NICOTINE 14 MG/24 HOURS TOPICAL PATCH TD SCH (10:56)
[2020-07-15] MEDS: PRENATAL VITAMINS W/ FOLIC ACID TABLET (FP) PO SCH (10:56)
[2020-07-15] MEDS: THIAMINE HCL 100 MG TABLET (FP) PO SCH (21:32)
[2020-07-15] MEDS: MELATONIN 5 MG TABLETS PO SCH (21:32)
[2020-07-15] MEDS: METHOCARBAMOL 750 MG TABLET PO PRN (21:32)
[2020-07-15] MEDS: hydrOXYzine PAMOATE 25 MG CAPSULE (FP) PO PRN (21:32)
[2020-07-15] MEDS: QUEtiapine FUMARATE 100 MG TABLET (FP) PO SCH (21:32)
[2020-07-15] MEDS: traZODone HCL 100 MG TABLET (FP) PO SCH (21:33)
[2020-07-16] MEDS: PRENATAL VITAMINS W/ FOLIC ACID TABLET (FP) PO SCH (10:30)
[2020-07-16] MEDS: NICOTINE 14 MG/24 HOURS TOPICAL PATCH TD SCH (10:31)
[2020-07-16] MEDS: METHOCARBAMOL 750 MG TABLET PO PRN ×2 (10:31→21:34)
[2020-07-16] MEDS: hydrOXYzine PAMOATE 25 MG CAPSULE (FP) PO PRN ×2 (10:31→21:34)
[2020-07-16] MEDS: QUEtiapine FUMARATE 100 MG TABLET (FP) PO SCH (21:34)
[2020-07-16] MEDS: traZODone HCL 100 MG TABLET (FP) PO SCH (21:34)
[2020-07-16] MEDS: THIAMINE HCL 100 MG TABLET (FP) PO SCH (21:34)
[2020-07-16] MEDS: MELATONIN 5 MG TABLETS PO SCH (21:35)
[2020-07-17] MEDS: PRENATAL VITAMINS W/ FOLIC ACID TABLET (FP) PO SCH (10:36)
[2020-07-17] MEDS: hydrOXYzine PAMOATE 25 MG CAPSULE (FP) PO PRN ×2 (10:36→21:32)
[2020-07-17] MEDS: NICOTINE 14 MG/24 HOURS TOPICAL PATCH TD SCH (10:37)
[2020-07-17] MEDS: THIAMINE HCL 100 MG TABLET (FP) PO SCH (21:32)
[2020-07-17] MEDS: MELATONIN 5 MG TABLETS PO SCH (21:32)
[2020-07-17] MEDS: METHOCARBAMOL 750 MG TABLET PO PRN (21:32)
[2020-07-17] MEDS: traZODone HCL 100 MG TABLET (FP) PO SCH (21:32)
[2020-07-17] MEDS: QUEtiapine FUMARATE 100 MG TABLET (FP) PO SCH (21:32)
[2020-07-18] MEDS: NICOTINE 14 MG/24 HOURS TOPICAL PATCH TD SCH (09:32)
[2020-07-18] MEDS: PRENATAL VITAMINS W/ FOLIC ACID TABLET (FP) PO SCH (09:32)
[2020-07-18] MEDS: hydrOXYzine PAMOATE 25 MG CAPSULE (FP) PO PRN ×2 (09:32→21:38)
[2020-07-18] MEDS: THIAMINE HCL 100 MG TABLET (FP) PO SCH (21:38)
[2020-07-18] MEDS: traZODone HCL 100 MG TABLET (FP) PO SCH (21:38)
[2020-07-18] MEDS: MELATONIN 5 MG TABLETS PO SCH (21:38)
[2020-07-18] MEDS: METHOCARBAMOL 750 MG TABLET PO PRN (21:38)
[2020-07-18] MEDS: QUEtiapine FUMARATE 100 MG TABLET (FP) PO SCH (21:38)
[2020-07-19 07:30] VITALS: BP 106/68; PULSE 73; TEMP 97.5
--- NOTE | 2020-07-19 10:30 | PN ---
[facility] Progress Note Note: Patient is scheduled for discharge tomorrow. Scripts for 30 days supply of medications(Seroquel 100 mg/hs, Trazadone 100 mg/hs) will be electronically transmitted to [facility],[address] [place] [id number]
[2020-07-19] MEDS: PRENATAL VITAMINS W/ FOLIC ACID TABLET (FP) PO SCH (10:45)
[2020-07-19] MEDS: NICOTINE 14 MG/24 HOURS TOPICAL PATCH TD SCH (10:45)
[2020-07-19] MEDS: IBUPROFEN 400 MG TABLET (FP) PO PRN (10:46)
[2020-07-19] MEDS: hydrOXYzine PAMOATE 25 MG CAPSULE (FP) PO PRN ×2 (10:46→21:49)
[2020-07-19] MEDS: QUEtiapine FUMARATE 100 MG TABLET (FP) PO SCH (21:49)
[2020-07-19] MEDS: METHOCARBAMOL 750 MG TABLET PO PRN (21:49)
[2020-07-19] MEDS: traZODone HCL 100 MG TABLET (FP) PO SCH (21:49)
[2020-07-19] MEDS: THIAMINE HCL 100 MG TABLET (FP) PO SCH (21:49)
[2020-07-19] MEDS: MELATONIN 5 MG TABLETS PO SCH (21:50)
--- NOTE | 2020-07-20 09:31 | DS ---
[facility] Rehab Discharge Summary - [facility] Rehab Discharge Summary Admission Date: 07/07/20 Discharge Date: 07/20/20 - History Present History: Opioid dependence Pertinent Past History: Asthma HTN(no current med) GERD Hep c Bipolar Disorder - Discharge Physical Exam Vital Signs: Vital Signs Temperature 97.5 F L 07/19/20 07:29 Pulse Rate 73 07/19/20 07:29 Respiratory Rate 18 07/19/20 07:29 Blood Pressure 106/68 07/19/20 07:29 O2 Sat by Pulse Oximetry (%) 99 07/20/20 06:46 Alert o x 3 nad oob ambulating with steady gait MSK:Active FROM, all limbs Pertinent Admission Physical Exam Findings: Laboratory Tests 07/08/20 08:00 HIV Ag/Ab Combo Qual Negative - Treatment Discharge Condition: Discharge condition good, Rehabilitated safely, Responded well, Outpatient referral accepted Hospital Course: CD aftercare accepted to [facility]- New Directions - Medication Discharge Medications: Ambulatory Orders Hydrochlorothiazide 12.5 mg PO 07/02/20 Quetiapine Fumarate [Seroquel -] 100 mg PO DAILY #30 tablet 07/19/20 Quetiapine Fumarate [Seroquel -] 100 mg PO HS #30 tablet 07/19/20 traZODone HCL [Desyrel -] 100 mg PO HS #30 tablet 07/19/20 traZODone HCL [Trazodone HCl] 100 mg PO HS #30 tablet 07/19/20 Albuterol Sulfate Inhaler - [Ventolin HFA Inhaler -] 2 inh PO Q4H #1 inh 07/20/20 - Medication-Assisted Treatment (MAT) Medication-Assisted Treatment (MAT): No - Discharge Instructions Diet, activity, other medical instructions: Diet:LISA Activity: oob ad adrian Other medical instructions:follow up with PCP Dr. Amish Miller at [place], [place] for medical management as needed. - Diagnosis (1) Opioid use disorder Status: Chronic (2) Asthma Status: Chronic Qualifiers: Asthma severity: mild Asthma persistence: intermittent (3) GERD (gastroesophageal reflux disease) Status: Chronic Qualifiers: Esophagitis presence: esophagitis presence not specified Qualified Code(s): K21.9 - Gastro-esophageal reflux disease without esophagitis (4) Hep C w/o coma, chronic Status: Chronic (5) Hypertension Status: Chronic Qualifiers: Hypertension type: unspecified Qualified Code(s): I10 - Essential (primary) hypertension - Follow-up Referral Minutes to complete discharge: 25 - AMA Did Patient Leave Against Medical Advice: No
== END 2020-07-20 08:50 | disposition home or self-care (01) | DRG 895 ==
LOC: YASAS 15:21 → Y5N 15:22
PROVIDERS: ADMIT Allergy & Immunology; ATTEND Allergy & Immunology
PROC: HZ42ZZZ Group Counseling for Substance Abuse Treatment, Cognitive-Behavioral (ICD-10-PCS; principal; 2020-07-07)
DX: F11.20 Opioid dependence, uncomplicated (principal); F20.9 Schizophrenia, unspecified; F31.9 Bipolar disorder, unspecified; F41.9 Anxiety disorder, unspecified; A53.0 Latent syphilis, unspecified as early or late; I10 Essential (primary) hypertension; J45.909 Unspecified asthma, uncomplicated; K21.9 Gastro-esophageal reflux disease without esophagitis; B18.2 Chronic viral hepatitis C; N40.0 Benign prostatic hyperplasia without lower urinary tract symptoms; Z86.19 Personal history of other infectious and parasitic diseases; Z88.0 Allergy status to penicillin
CPT/HCPCS: 36415; 87389

== ENCOUNTER 2024-01-31 18:52 | Inpatient (IN) | payer OTHER ==
[2024-01-31 20:26] VITALS: BMI 27.3
[2024-02-01] MEDS ORDERED: BENZONATATE 200 MG CAPSULE PO PRN (03:19)
[2024-02-01] MEDS ORDERED: NICOTINE POLACRILEX 2 MG GUM BUC PRN (03:19)
[2024-02-01] MEDS ORDERED: IBUPROFEN 400 MG TABLET (FP) PO PRN (03:19)
[2024-02-01] MEDS ORDERED: NALOXONE HCL 0.4 MG/ML VIAL IM PRN (03:19)
[2024-02-01] MEDS ORDERED: ACETAMINOPHEN 325 MG TABLET (FP) PO PRN (03:19)
[2024-02-01] MEDS ORDERED: NALOXONE HCL (KLOXXADO) 8 MG SPRAY NS PRN (03:19)
[2024-02-01] MEDS ORDERED: ALBUTEROL SO4 HFA INHALER IH PRN (08:35)
[2024-02-01] MEDS ORDERED: TUBERCULIN PPD 5 TU/0.1ML VIAL ID ONE (09:07)
[2024-02-01] MEDS: PRENATAL VITAMINS W/ FOLIC ACID TABLET (FP) PO SCH (11:28)
[2024-02-01] MEDS: NICOTINE 21 MG/24 HOURS TOPICAL PATCH TD SCH (11:28)
[2024-02-01] MEDS: HYDROCHLOROTHIAZIDE 12.5 MG CAPSULE (FP) PO SCH (11:28)
[2024-02-01] MEDS: TUBERCULIN PPD 5 TU/0.1ML SYRINGE (IN PATIENT USE ONLY) ID ONE (11:29)
[2024-02-01] MEDS: NICOTINE 14 MG/24 HOURS TOPICAL PATCH TD SCH (11:48)
[2024-02-01] MEDS: IBUPROFEN 600 MG TABLET (FP) PO PRN (12:00)
[2024-02-01] MEDS: MELATONIN 5 MG TABLETS PO SCH (21:37)
[2024-02-01] MEDS: THIAMINE 100 MG TABLET PO SCH (21:37)
[2024-02-01] MEDS: BACITRACIN ZINC 15 GM TUBE TOPICAL OINTMENT TP SCH (21:37)
[2024-02-01] MEDS: hydrOXYzine PAMOATE 25 MG CAPSULE (FP) PO PRN (21:41)
[2024-02-02] MEDS: MAGNESIUM HYDROX 2400MG/30ML ORAL SUSPENSION 30 ML CUP PO PRN (06:21)
[2024-02-02] MEDS: guaiFENesin 600 MG TABLET.ER (FP) PO PRN (06:21)
[2024-02-02] MEDS ORDERED: METHOCARBAMOL 750 MG TABLET PO PRN (13:13)
[2024-02-02] MEDS: cloNIDine HCL 0.1 MG TABLET PO ONE (13:25)
[2024-02-02] MEDS: ASPIRIN COATED 81 MG TABLET.EC PO SCH (13:33)
[2024-02-02 14:06] LABS: HEMATOCRIT 33.1 % (35.4-49); MCH 30.8 pg (25.7-33.7); MCHC 33.3 g/dl (32.0-35.9); MEAN CELL VOLUME 92.5 fl (80-96); PLATELET COUNT 256 10^3/uL (134-434); RBC 3.57 M/mm3 (4.00-5.60); RDW 13.9 % (11.9-15.9); WHITE BLOOD COUNT 6.2 K/mm3 (4.0-10.0)
[2024-02-02 14:07] LABS: URINE APPEARANCE CLEAR; URINE BILIRUBIN NEGATIVE (NEGATIVE); URINE COLOR YELLOW; URINE GLUCOSE (UA) NEGATIVE (NEGATIVE); URINE KETONE NEGATIVE (NEGATIVE); URINE LEUK ESTERASE NEGATIVE (NEGATIVE); URINE NITRITE NEGATIVE (NEGATIVE); URINE PROTEIN TRACE (NEGATIVE); URINE UROBILINOGEN 0.2 mg/dL (0.2-1.0)
[2024-02-02 14:11] LABS: POTASSIUM 3.6 mmol/L (3.5-5.1)
[2024-02-02 14:12] LABS: CALCIUM 8.7 mg/dL (8.5-10.1)
[2024-02-02 14:13] LABS: ALBUMIN 2.9 g/dl (3.4-5.0)
[2024-02-02 14:16] LABS: CREATININE 1.2 mg/dL (0.55-1.3)
[2024-02-02 14:18] LABS: BILIRUBIN,TOTAL 0.2 mg/dL (0.2-1); TOT PROT 6.6 g/dl (6.4-8.2)
[2024-02-02] MEDS: cloNIDine HCL 0.1 MG TABLET PO PRN (21:22)
[2024-02-02] MEDS: METHOCARBAMOL 500 MG TABLET PO PRN (21:22)
[2024-02-02] MEDS: QUEtiapine FUMARATE 100 MG TABLET (FP) PO SCH (21:24)
[2024-02-02] MEDS: traZODone HCL 50 MG TABLET (FP) PO SCH (21:24)
[2024-02-02] MEDS ORDERED: QUEtiapine FUMARATE 50 MG TABLET PO SCH (22:00)
[2024-02-03] MEDS: POLYETHYLENE GLYCOL (HEALTHYLAX) 3350 17 GM PACKET PO PRN (13:58)
[2024-02-04] MEDS ORDERED: DICYCLOMINE HCL 10 MG CAPSULE PO PRN (08:33)
[2024-02-04] MEDS ORDERED: BENZONATATE 200 MG CAPSULE PO PRN (08:33)
[2024-02-04] MEDS ORDERED: BISMUTH SUBSALICYLATE 524 MG/30 ML PO PRN (08:33)
[2024-02-04] MEDS ORDERED: BUPRENORPHINE HCL 150 MCG, BUPRENORPHINE HCL 75 MCG BC PRN (12:40)
[2024-02-04] MEDS: BUPRENORPHINE HCL 150 MCG, BUPRENORPHINE HCL 75 MCG BC ONE (13:13)
[2024-02-05] MEDS ORDERED: BUPRENORPHINE HCL 150 MCG, BUPRENORPHINE HCL 75 MCG BC PRN
[2024-02-05] MEDS: BUPRENORPHINE HCL 150 MCG, BUPRENORPHINE HCL 75 MCG BC SCH (06:40)
[2024-02-06] MEDS: BUPRENORPHINE HCL 450 MCG FILM BC SCH (06:10)
[2024-02-06] MEDS: NICOTINE 14 MG/24 HOURS TOPICAL PATCH TD PRN (10:34)
[2024-02-07] MEDS ORDERED: BUPRENORPHINE/NALOXONE 4 MG/1 MG FILM PACKET SL SCH (06:00)
[2024-02-07] MEDS: BUPRENORPHINE/NALOXONE 4 MG/1 MG FILM PACKET SL SCH (06:14)
[2024-02-08] MEDS: BUPRENORPHINE/NALOXONE 4 MG/1 MG FILM PACKET SL SCH (06:04)
[2024-02-08] MEDS: BENZOCAINE/MENTHOL (CHLORASEPTIC ) LOZENGE MM PRN (09:15)
[2024-02-09] MEDS: BUPRENORPHINE/NALOXONE 4 MG/1 MG FILM PACKET SL SCH (06:52)
[2024-02-11] MEDS: MAG HYDROX/AL HYDROX/SIMETH 30 ML UNIT-DOSE CUP PO PRN (03:44)
[2024-02-11] MEDS ORDERED: SIMETHICONE 80 MG TAB.CHEW (FP) PO PRN (17:10)
[2024-02-11] MEDS: LOPERAMIDE HCL 2 MG CAPSULE PO PRN (18:05)
[2024-02-12] MEDS: TAMSULOSIN HCL 0.4 MG CAP PO SCH (07:37)
[2024-02-12] MEDS: amLODIPine BESYLATE 2.5 MG TABLET (FP) PO SCH (10:24)
[2024-02-13] MEDS: BUPRENORPHINE/NALOXONE 4 MG/1 MG FILM PACKET SL SCH (06:45)
[2024-02-13] MEDS ORDERED: amLODIPine BESYLATE 2.5 MG TABLET (FP) PO SCH ×2 (10:00)
[2024-02-13] MEDS: amLODIPine BESYLATE 2.5 MG TABLET (FP) PO SCH (10:35)
[2024-02-23] MEDS: amLODIPine BESYLATE 5 MG TABLET (FP) PO SCH (09:34)
[2024-02-26 18:11] VITALS: RESP 16
[2024-02-29 06:44] VITALS: BP 110/70; PULSE 80; TEMP 97.7
== END 2024-02-29 09:20 | disposition home or self-care (01) | DRG 895 ==
LOC: YASAS 18:52 → Y3E 02-01 04:54
PROVIDERS: ADMIT Allergy & Immunology; ATTEND Psychiatry & Neurology Pain Medicine
PROC: HZ42ZZZ Group Counseling for Substance Abuse Treatment, Cognitive-Behavioral (ICD-10-PCS; principal; 2024-02-01)
DX: F11.20 Opioid dependence, uncomplicated (principal); F14.20 Cocaine dependence, uncomplicated; F17.210 Nicotine dependence, cigarettes, uncomplicated; F25.9 Schizoaffective disorder, unspecified; F41.9 Anxiety disorder, unspecified; F31.9 Bipolar disorder, unspecified; I10 Essential (primary) hypertension; G47.00 Insomnia, unspecified; R76.8 Other specified abnormal immunological findings in serum; K21.9 Gastro-esophageal reflux disease without esophagitis; J45.909 Unspecified asthma, uncomplicated; M54.59 Other low back pain; G89.29 Other chronic pain; Z91.51 Personal history of suicidal behavior; Z88.0 Allergy status to penicillin; Z86.19 Personal history of other infectious and parasitic diseases; Z56.0 Unemployment, unspecified
CPT/HCPCS: 0241U-QW; 36415; 71045-TC-FY; 80053; 80307; 81003; 82962; 85027; 86593; 86780; 87811; 93005; 93010

== ENCOUNTER 2024-03-05 20:08 | Inpatient (IN) | payer OTHER ==
[2024-03-05 23:29] VITALS: BMI 25.0
[2024-03-06] MEDS ORDERED: LOPERAMIDE HCL 2 MG CAPSULE PO PRN (02:57)
[2024-03-06] MEDS ORDERED: NALOXONE (NYS OPIOID OVERDOSE PROGRAM) 4 MG/0.1 ML SPRAY NS PRN (02:57)
[2024-03-06] MEDS ORDERED: METHOCARBAMOL 500 MG TABLET PO PRN (02:57)
[2024-03-06] MEDS ORDERED: MAG HYDROX/AL HYDROX/SIMETH 30 ML UNIT-DOSE CUP PO PRN (02:57)
[2024-03-06] MEDS ORDERED: guaiFENesin 600 MG TABLET.ER (FP) PO PRN (02:57)
[2024-03-06] MEDS ORDERED: BENZONATATE 200 MG CAPSULE PO PRN (02:57)
[2024-03-06] MEDS ORDERED: BENZOCAINE/MENTHOL (CHLORASEPTIC ) LOZENGE MM PRN (02:57)
[2024-03-06] MEDS ORDERED: NALOXONE HCL 0.4 MG/ML VIAL IVPUSH PRN (02:57)
[2024-03-06] MEDS: ASPIRIN COATED 81 MG TABLET.EC PO SCH (10:35)
[2024-03-06] MEDS: amLODIPine BESYLATE 5 MG TABLET (FP) PO SCH (10:35)
[2024-03-06] MEDS: HYDROCHLOROTHIAZIDE 12.5 MG CAPSULE (FP) PO SCH (10:35)
[2024-03-06] MEDS: PRENATAL VITAMINS W/ FOLIC ACID TABLET (FP) PO SCH (10:35)
[2024-03-06] MEDS: ALBUTEROL SO4 HFA INHALER IH SCH (10:37)
[2024-03-06] MEDS ORDERED: DICYCLOMINE HCL 10 MG CAPSULE PO PRN (13:01)
[2024-03-06] MEDS ORDERED: ONDANSETRON *ODT* 4 MG TABLET SL PRN (13:01)
[2024-03-06] MEDS ORDERED: BISMUTH SUBSALICYLATE 524 MG/30 ML PO PRN (13:01)
[2024-03-06] MEDS ORDERED: diazePAM 5 MG TABLET PO PRN (13:03)
[2024-03-06] MEDS ORDERED: BUPRENORPHINE HCL 150 MCG, BUPRENORPHINE HCL 75 MCG BC PRN (13:03)
[2024-03-06] MEDS ORDERED: ALBUTEROL SO4 HFA INHALER IH PRN (14:43)
[2024-03-06] MEDS: BUPRENORPHINE HCL 150 MCG, BUPRENORPHINE HCL 75 MCG BC ONE (14:48)
[2024-03-06] MEDS: cloNIDine HCL 0.1 MG TABLET PO ONE (14:48)
[2024-03-06] MEDS: NICOTINE 21 MG/24 HOURS TOPICAL PATCH TD SCH (14:50)
[2024-03-06] MEDS: IBUPROFEN 600 MG TABLET (FP) PO PRN (14:52)
[2024-03-06] MEDS ORDERED: cloNIDine HCL 0.1 MG TABLET PO PRN (17:04)
[2024-03-06] MEDS: MELATONIN 5 MG TABLETS PO SCH (21:22)
[2024-03-06] MEDS: traZODone HCL 50 MG TABLET (FP) PO SCH (21:22)
[2024-03-06] MEDS: THIAMINE 100 MG TABLET PO SCH (21:22)
[2024-03-06] MEDS: QUEtiapine FUMARATE 100 MG TABLET (FP) PO SCH (21:22)
[2024-03-06] MEDS: MAGNESIUM HYDROX 2400MG/30ML ORAL SUSPENSION 30 ML CUP PO PRN (21:23)
[2024-03-06] MEDS ORDERED: QUEtiapine FUMARATE 100 MG TABLET (FP) PO SCH (22:00)
[2024-03-07] MEDS ORDERED: BUPRENORPHINE HCL 150 MCG, BUPRENORPHINE HCL 75 MCG BC PRN
[2024-03-07] MEDS: BUPRENORPHINE HCL 150 MCG, BUPRENORPHINE HCL 75 MCG BC SCH (07:08)
[2024-03-07] MEDS: TAMSULOSIN HCL 0.4 MG CAP PO SCH (07:42)
[2024-03-07 12:00] LABS: HEMATOCRIT 34.4 % (35.4-49); HEMOGLOBIN 11.6 GM/dL (11.7-16.9); MCH 30.1 pg (25.7-33.7); MCHC 33.6 g/dl (32.0-35.9); MEAN CELL VOLUME 89.6 fl (80-96); MEAN PLT VOLUME 7.6 fl (7.5-11.1); PLATELET COUNT 296 10^3/uL (134-434); RBC 3.85 M/mm3 (4.00-5.60); RDW 13.6 % (11.9-15.9); WHITE BLOOD COUNT 5.8 K/mm3 (4.0-10.0)
[2024-03-07 12:02] LABS: POTASSIUM 4.5 mmol/L (3.5-5.1)
[2024-03-07 12:04] LABS: CALCIUM 9.5 mg/dL (8.5-10.1)
[2024-03-07 12:05] LABS: ALBUMIN 3.2 g/dl (3.4-5.0); BLOOD UREA NITROGEN 18.9 mg/dL (7-18)
[2024-03-07 12:08] LABS: CREATININE 1.1 mg/dL (0.55-1.3)
[2024-03-07 12:09] LABS: BILIRUBIN,TOTAL 0.3 mg/dL (0.2-1); TOT PROT 7.2 g/dl (6.4-8.2)
[2024-03-08] MEDS: BUPRENORPHINE HCL 450 MCG FILM BC SCH (06:22)
[2024-03-09] MEDS: BUPRENORPHINE/NALOXONE 4 MG/1 MG FILM PACKET SL SCH (07:00)
[2024-03-09 11:06] LABS: EPI CELLS 32 /uL (0-25.1); HYALINE CASTS 3 /uL (0-3.1); PH,URINE 6.5 (5.0-8.0); URINE APPEARANCE CLEAR; URINE BACTERIA 68 /uL (0-1359); URINE BILIRUBIN NEGATIVE (NEGATIVE); URINE COLOR YELLOW; URINE GLUCOSE (UA) NEGATIVE (NEGATIVE); URINE KETONE NEGATIVE (NEGATIVE); URINE LEUK ESTERASE 1+ (NEGATIVE); URINE NITRITE NEGATIVE (NEGATIVE); URINE PROTEIN NEGATIVE (NEGATIVE); URINE RBC 4 /uL (0-23.9); URINE WBC 32 /uL (0-25.8)
[2024-03-10] MEDS: BUPRENORPHINE/NALOXONE 4 MG/1 MG FILM PACKET SL SCH (06:33)
[2024-03-10] MEDS: IBUPROFEN 400 MG TABLET (FP) PO PRN (10:03)
[2024-03-13] MEDS: DOCUSATE SODIUM 100 MG CAPSULE (FP) PO SCH (21:21)
[2024-03-15] MEDS: BISACODYL 5 MG TABLET.DR (FP) PO PRN (13:46)
[2024-03-15] MEDS: ACETAMINOPHEN 325 MG TABLET (FP) PO PRN (21:24)
[2024-03-16] MEDS: SODIUM PHOSPHATE/NA BIPHOS 133 ML ENEMA RC ONE (11:43)
[2024-03-16] MEDS: DOCUSATE SODIUM 100 MG CAPSULE (FP) PO ONE (12:08)
[2024-03-19] MEDS: SODIUM PHOSPHATE/NA BIPHOS 133 ML ENEMA RC ONE (16:45)
[2024-03-21] MEDS: BISACODYL 10 MG SUPP.RECT PR ONE (16:39)
[2024-03-21] MEDS: SODIUM PHOSPHATE/NA BIPHOS 133 ML ENEMA RC ONE (16:46)
[2024-03-22] MEDS: LACTULOSE 20 GM/30 ML UDC (FOR ORAL USE ONLY) PO PRN (09:55)
[2024-03-26] MEDS: POLYETHYLENE GLYCOL (HEALTHYLAX) 3350 17 GM PACKET PO PRN (17:50)
[2024-03-30] MEDS ORDERED: QUEtiapine FUMARATE 50 MG TABLET ONE (21:19)
[2024-04-01] MEDS: hydrOXYzine PAMOATE 25 MG CAPSULE (FP) PO PRN (01:21)
[2024-04-02 12:13] VITALS: RESP 18
[2024-04-03 06:56] VITALS: TEMP 97.7
[2024-04-03 09:19] VITALS: BP 141/80; PULSE 98
== END 2024-04-03 09:23 | disposition home or self-care (01) | DRG 895 ==
LOC: YASAS 20:08 → Y3W 03-06 01:42
PROVIDERS: ADMIT Allergy & Immunology; ATTEND Surgery
PROC: HZ42ZZZ Group Counseling for Substance Abuse Treatment, Cognitive-Behavioral (ICD-10-PCS; principal; 2024-03-06)
DX: F11.20 Opioid dependence, uncomplicated (principal); F14.20 Cocaine dependence, uncomplicated; F17.210 Nicotine dependence, cigarettes, uncomplicated; F31.9 Bipolar disorder, unspecified; F25.9 Schizoaffective disorder, unspecified; F41.9 Anxiety disorder, unspecified; I10 Essential (primary) hypertension; J45.20 Mild intermittent asthma, uncomplicated; K21.9 Gastro-esophageal reflux disease without esophagitis; K59.00 Constipation, unspecified; D64.9 Anemia, unspecified; B18.2 Chronic viral hepatitis C; R39.11 Hesitancy of micturition; Z86.19 Personal history of other infectious and parasitic diseases
CPT/HCPCS: 36415; 80053; 80305; 81003; 85027; 86593; 86780; 87811

== ENCOUNTER 2024-07-29 13:45 | Inpatient (IN) | payer OTHER ==
[2024-07-29 15:01] VITALS: BMI 20.9
[2024-07-29] MEDS ORDERED: NALOXONE (NARCAN) HCL 4 MG/0.1 ML SPRAY NS PRN (15:36)
[2024-07-29] MEDS ORDERED: MAGNESIUM HYDROX 2400MG/30ML ORAL SUSPENSION 30 ML CUP PO PRN (15:36)
[2024-07-29] MEDS ORDERED: NICOTINE POLACRILEX 2 MG GUM BUC PRN (15:36)
[2024-07-29] MEDS ORDERED: POLYETHYLENE GLYCOL (HEALTHYLAX) 3350 17 GM PACKET PO PRN (15:36)
[2024-07-29] MEDS ORDERED: LOPERAMIDE HCL 2 MG CAPSULE PO PRN (15:36)
[2024-07-29] MEDS ORDERED: P-EPHED 60MG/TRIPROLIDI 2.5MG TABLET PO PRN (15:36)
[2024-07-29] MEDS ORDERED: NICOTINE POLACRILEX 2 MG LOZENGE BC PRN (15:36)
[2024-07-29] MEDS ORDERED: guaiFENesin 600 MG TABLET.ER (FP) PO PRN (15:36)
[2024-07-29] MEDS ORDERED: BENZOCAINE/MENTHOL (CHLORASEPTIC ) LOZENGE MM PRN (15:36)
[2024-07-29] MEDS ORDERED: BENZONATATE 200 MG CAPSULE PO PRN (15:36)
[2024-07-29] MEDS ORDERED: MAG HYDROX/AL HYDROX/SIMETH 30 ML UNIT-DOSE CUP PO PRN (15:36)
[2024-07-29] MEDS ORDERED: IBUPROFEN 400 MG TABLET (FP) PO PRN (15:36)
[2024-07-29] MEDS ORDERED: amLODIPine BESYLATE 5 MG TABLET (FP) ONE (15:58)
[2024-07-29] MEDS ORDERED: HYDROCHLOROTHIAZIDE 12.5 MG CAPSULE (FP) ONE (15:58)
[2024-07-29] MEDS ORDERED: ASPIRIN 81 MG CHEWABLE TABLETS ONE (15:58)
[2024-07-29] MEDS: ASPIRIN COATED 81 MG TABLET.EC PO SCH (16:02)
[2024-07-29] MEDS: HYDROCHLOROTHIAZIDE 12.5 MG CAPSULE (FP) PO SCH (16:02)
[2024-07-29] MEDS: amLODIPine BESYLATE 5 MG TABLET (FP) PO SCH (16:02)
[2024-07-29] MEDS: MELATONIN 5 MG TABLETS PO SCH (22:15)
[2024-07-29] MEDS: THIAMINE 100 MG TABLET PO SCH (22:16)
[2024-07-29] MEDS: amLODIPine BESYLATE 5 MG TABLET (FP) PO ONE (23:27)
[2024-07-30] MEDS: IBUPROFEN 600 MG TABLET (FP) PO PRN (02:34)
[2024-07-30] MEDS: TAMSULOSIN HCL 0.4 MG CAP PO SCH (09:25)
[2024-07-30] MEDS: PRENATAL VITAMINS W/ FOLIC ACID TABLET (FP) PO SCH (10:02)
[2024-07-30 11:51] LABS: HEMATOCRIT 40.7 % (35.4-49); HEMOGLOBIN 13.5 GM/dL (11.7-16.9); MCH 29.4 pg (25.7-33.7); MCHC 33.2 g/dl (32.0-35.9); MEAN CELL VOLUME 88.6 fl (80-96); MEAN PLT VOLUME 8.4 fl (7.5-11.1); PLATELET COUNT 235 10^3/uL (134-434); RDW 14.3 % (11.9-15.9); WHITE BLOOD COUNT 4.1 K/mm3 (4.0-10.0)
[2024-07-30 11:55] LABS: URINE APPEARANCE CLEAR; URINE BILIRUBIN NEGATIVE (NEGATIVE); URINE COLOR YELLOW; URINE GLUCOSE (UA) NEGATIVE (NEGATIVE); URINE KETONE NEGATIVE (NEGATIVE); URINE LEUK ESTERASE NEGATIVE (NEGATIVE); URINE NITRITE NEGATIVE (NEGATIVE); URINE PROTEIN NEGATIVE (NEGATIVE); URINE UROBILINOGEN 0.2 mg/dL (0.2-1.0)
[2024-07-30] MEDS ORDERED: amLODIPine BESYLATE 5 MG TABLET (FP) PO SCH (12:37)
[2024-07-30] MEDS ORDERED: ONDANSETRON *ODT* 4 MG TABLET SL PRN (12:47)
[2024-07-30] MEDS ORDERED: DICYCLOMINE HCL 10 MG CAPSULE PO PRN (12:47)
[2024-07-30] MEDS ORDERED: BACLOFEN 10 MG TABLET (FP) PO PRN (12:47)
[2024-07-30] MEDS ORDERED: BISMUTH SUBSALICYLATE 524 MG/30 ML PO PRN (12:47)
[2024-07-30] MEDS ORDERED: BUPRENORPHINE HCL 150 MCG, BUPRENORPHINE HCL 75 MCG BC PRN (12:49)
[2024-07-30 13:01] LABS: CHLORIDE 105 mmol/L (98-107); SODIUM 140 mmol/L (136-145)
[2024-07-30 13:08] LABS: ALBUMIN 3.2 g/dl (3.4-5.0); ANION GAP 5 mmol/L (4-13); BLOOD UREA NITROGEN 17.6 mg/dL (7-18); CALCIUM 9.6 mg/dL (8.5-10.1); CO2 31 mmol/L (21-32); GLUCOSE,RANDOM 96 mg/dL (74-106)
[2024-07-30 13:10] LABS: CREATININE 1.1 mg/dL (0.55-1.3); SGOT/AST 33 U/L (15-37); SGPT/ALT 45 U/L (13-61)
[2024-07-30 13:11] LABS: BILIRUBIN,TOTAL 0.7 mg/dL (0.2-1)
[2024-07-30 13:12] LABS: ALK PHOS 57 U/L (45-117)
[2024-07-30] MEDS: NICOTINE 21 MG/24 HOURS TOPICAL PATCH TD SCH (13:36)
[2024-07-30] MEDS: cloNIDine HCL 0.1 MG TABLET PO ONE (13:38)
[2024-07-30] MEDS: BUPRENORPHINE HCL 150 MCG, BUPRENORPHINE HCL 75 MCG BC ONE (13:39)
[2024-07-30] MEDS ORDERED: cloNIDine HCL 0.1 MG TABLET PO PRN (16:49)
[2024-07-31] MEDS ORDERED: BUPRENORPHINE HCL 150 MCG, BUPRENORPHINE HCL 75 MCG BC PRN
[2024-07-31] MEDS: BUPRENORPHINE HCL 150 MCG, BUPRENORPHINE HCL 75 MCG BC SCH (06:37)
[2024-07-31] MEDS: QUEtiapine FUMARATE 100 MG TABLET (FP) PO SCH (21:32)
[2024-07-31] MEDS: traZODone HCL 50 MG TABLET (FP) PO SCH (21:32)
[2024-08-01] MEDS: BUPRENORPHINE HCL 450 MCG FILM BC SCH (06:47)
[2024-08-02] MEDS: BUPRENORPHINE/NALOXONE 4 MG/1 MG FILM PACKET SL SCH (06:09)
[2024-08-02] MEDS: VITAMINS A AND D TOPICAL OINTMENT TP SCH (12:41)
[2024-08-03] MEDS: BUPRENORPHINE/NALOXONE 8 MG/2 MG FILM PACKET SL SCH (21:28)
[2024-08-04] MEDS: QUEtiapine FUMARATE 50 MG TABLET PO SCH (21:30)
[2024-08-06] MEDS: DOCUSATE SODIUM 100 MG CAPSULE (FP) PO PRN (09:51)
[2024-08-07] MEDS: hydrOXYzine PAMOATE 25 MG CAPSULE (FP) PO PRN (02:12)
[2024-08-09] MEDS: QUEtiapine FUMARATE 50 MG TABLET PO SCH (21:26)
[2024-08-10] MEDS: ACETAMINOPHEN 325 MG TABLET (FP) PO PRN (00:31)
[2024-08-11] MEDS: ALBUTEROL SO4 HFA INHALER IH PRN (11:32)
[2024-08-11] MEDS: VITAMINS A AND D TOPICAL OINTMENT TP PRN (16:54)
[2024-08-12 06:44] VITALS: TEMP 97.6
[2024-08-12] MEDS: NALOXONE (NYS OPIOID OVERDOSE PROGRAM) 4 MG/0.1 ML SPRAY NS PRN (09:28)
[2024-08-12 09:42] VITALS: BP 137/85; PULSE 99; RESP 18
== END 2024-08-12 10:10 | disposition home or self-care (01) | DRG 895 ==
LOC: YASAS 13:45 → Y5N 16:55
PROVIDERS: ADMIT Allergy & Immunology; ATTEND Psychiatry & Neurology Pain Medicine
PROC: HZ42ZZZ Group Counseling for Substance Abuse Treatment, Cognitive-Behavioral (ICD-10-PCS; principal; 2024-07-29)
DX: F11.20 Opioid dependence, uncomplicated (principal); F14.20 Cocaine dependence, uncomplicated; F19.282 Other psychoactive substance dependence with psychoactive substance-induced sleep disorder; F17.210 Nicotine dependence, cigarettes, uncomplicated; F25.9 Schizoaffective disorder, unspecified; F31.9 Bipolar disorder, unspecified; F41.9 Anxiety disorder, unspecified; I10 Essential (primary) hypertension; J45.20 Mild intermittent asthma, uncomplicated; K21.9 Gastro-esophageal reflux disease without esophagitis; Z86.19 Personal history of other infectious and parasitic diseases; Z88.0 Allergy status to penicillin
CPT/HCPCS: 36415; 80053; 80305; 80307; 81003; 85027; 86593; 86780; 87811; 93005; 93010